=== PATIENT | female | born 1990 | race Two or more races ===

== ENCOUNTER 2016-10-03 12:10 | Emergency (ER) | payer OTHER, BC ==
[~2016-10-03 12:10] MED LIST: ADVIL200 M1 PO; BACTRIM DS TABL1 TAB PO; CIPRO500 MG; CIPRO500 MG PO; COMPAZINE10 M; COMPAZINE10 M PO; DARVOCET-N 1001 TAB; DARVOCET-N 1001 TAB PO; DIFLUCAN150 MG PO; FLAGYL500 MG PO; HYDROCODONE/APA1 CAP; MACROBID 100 M100 MG PO; METROGEL-VAGINA70 GM VG; MOTRIN600 MG PO; NEXPLANON68 M1; NO HOME MEDICATION XX; NO MEDICATIONS; NORCO 5-325 TA1 EACH PO; NORCO 5/325 TAB1 TAB; NORCO 5/325 TAB1 TAB PO; ONDANSETRON ODT4 M1 PO; PERCOCET 5-3251 EACH PO; PRENATAL1 TAB PO; PROMETHAZINE25 MG; PYRIDIUM200 MG; PYRIDIUM200 MG PO; SEPTRA DS TABLE1 TAB; SEPTRA DS TABLE1 TAB PO; TYLENOL W/CODEI1 TAB PO; VICODIN 5/500 T1 TAB PO; ZOFRAN ODT4 MG PO; ZOFRAN ODT4 MG/UDTAB; ZOFRAN ODT4 MG/UDTAB PO; ZOFRAN4 M2 PO; [UNRECOGNIZED DRUG - OTHER]; no meds
[2016-10-03] MEDS ORDERED: CYCLOBENZAPRINE5 M1 PO (14:25)
== END 2016-10-03 14:33 ==
LOC: EDMED 12:10
DX: M54.5 Low back pain (principal); V49.50XA Passenger injured in collision with unspecified motor vehicles in traffic accident, initial encounter; Y92.410 Unspecified street and highway as the place of occurrence of the external cause